=== PATIENT | male | born 1960 | race Caucasian/White ===

== ENCOUNTER 2021-12-02 06:09 | Day surgery (SDC) | payer OTHER, SELFPAY ==
[2021-11-27 12:03] VITALS: BMI 38.9
[2021-12-02 06:40] VITALS: BMI 82.2
[2021-12-02 06:43] VITALS: BP 189/104; PULSE 83; RESP 18; TEMP 36.3; O2SAT 94
[2021-12-02] MEDS: Ampicillin Sodium 2 GM in 0.9 % Sodium Chloride 100 ML IV (07:05)
--- NOTE | 2021-12-02 07:06 | P.CONAN_ITS ---
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 [facility] Active Problems Active Problems: HTN Hypothyroidism Denies ANDREW Past Medical History Medical History History of kidney stones History of revision of total replacement of left knee joint HTN (hypertension) Hypothyroid Family History Family history of problems with anesthesia: No Surgical History Surgical History History of total knee replacement Hx of cholecystectomy Hx of colonoscopy History of Problems with Anesthesia: No Social History Social History Patient Tobacco Use Status: Current everyday Tobacco user Tobacco use type: Cigar Use of substances other than those prescribed or required for medical reasons: No Are you DNR?: No Advance Directives: No Advance Directives Information Provided: Yes Meds Allergies Allergy/AdvReac Type Severity Reaction Status Date / Time No Known Allergies Allergy Unverified 11/27/21 12:02 [No Known Allergies*] Active Medications: Current Medications Sodium Biphosphate/Sodium Phosphate (Sodium Phosphate,[place]-Dibasic 133 Ml Enema) 133 ml NE ONCE PRN PRN Reason: Poor Colonoscopy Prep Results Home Medications Medication Instructions Recorded Confirmed Last Taken Type levothyroxine 25 mcg tablet 25 mcg PO DAILY 11/27/21 11/27/21 Unknown History lisinopril 20 mg tablet 20 mg PO DAILY 11/27/21 11/27/21 Unknown History Exam Exam Date and Time: December 02, [id number] Height,Weight and Vital Signs: Height 6 ft Weight 124.7kg Last Vital Signs Temp 97.3 F 12/02/21 06:43 Pulse 83 12/02/21 06:43 Resp 18 12/02/21 06:43 BP 189/104 H 12/02/21 06:43 Pulse Ox 94 12/02/21 06:43 O2 Del Method 12/02/21 06:43 Airway Mallampati Class: III TM Dist: >3cm Neck ROM: Full Loose/Missing/Broken Teeth: Yes ( Missing 1 back left) Heart: RRR Lungs: CTAB Assessment and Plan Final Anesthetic Review Family History of Problems with Anesthesia: No History of Problems with Anesthesia: No NPO: Yes ASA Class: III Final Preanesthetic Review: No Changes in Pt Med Stat, Meds/Allgs Chart Reviewed, Consent Obtained/Reviewed and Anes Risks/Benef Reviewed Patient Risk: Intermediate Procedure Risk: Low Assessment/Block/Sedation in SS: Assess/Block/Sedation-SS Anesthetic Plan Anesthetic Plan: MAC: Disposition: Standard PACU
[2021-12-02 07:09] VITALS: BMI 37.3
[2021-12-02] MEDS: Lactated Ringers 1,000 ML 100 ML IVCONT (07:25)
[2021-12-02] MEDS: Gentamicin Sulfate/NaCl 80 MG/100 ML PIGGYBACK 100 MG IV (07:40)
[2021-12-02 08:31] VITALS: BP 95/64; PULSE 82; RESP 24; TEMP 36.3; O2SAT 95
--- NOTE | 2021-12-02 08:31 | P.BOP_ITS ---
Brief Operative Note Date of Service: 12/02/21 Pre-op diagnosis: Screening Post-op diagnosis: other (Colon polyps) Procedure: Colonoscopy to the cecum with cold snare polypectomy at 40cm, and bx/removal of polyps x 3 Surgeon: Beau De Santiago Anesthesia: MAC Was an Senior [employer] Design Engineer used for this Procedure?: No Estimated blood loss (mL): 2.0 Pathology: other (A. Ascending colon polyp B. Polyp at 40cm C. Polyp at 20cm D. Rectal polyp) Condition: stable Disposition: PACU
[2021-12-02 08:45] VITALS: BP 121/87; PULSE 78; RESP 20; O2SAT 95
--- NOTE | 2021-12-02 08:45 | OP_ITS ---
12/02/2021 SURGEON: Beau De Santiago MD INDICATIONS: The patient presents for evaluation of colorectal cancer screening. Full consent was obtained from him for this, including risks of bleeding and perforation. PREOPERATIVE DIAGNOSIS: Colorectal cancer screening. POSTOPERATIVE DIAGNOSIS: Colorectal cancer screening, colon polyps, diverticulosis, and internal hemorrhoids. PROCEDURE PERFORMED: Colonoscopy to the cecum with biopsy and removal of polyps, and cold snare polypectomy x1. ESTIMATED BLOOD LOSS: COMPLICATIONS: ANESTHESIA: Monitored anesthesia care. ASSISTANTS: SPECIMENS: DESCRIPTION OF PROCEDURE: The patient was placed in the left lateral decubitus position. The digital rectal exam revealed no abnormalities. The [employer] video pediatric colonoscope was entered into the rectum and advanced easily to the cecum. Once in the cecum, I did identify normal-appearing cecal pouch with appendiceal orifice and a normal-appearing ileocecal valve. The entire cecum was well visualized and appeared normal. The scope was slowly withdrawn assessing all mucosal surfaces carefully. Preparation was excellent. In the proximal ascending colon was a flat approximately 4 mm polyp, which was biopsied and completely removed with cold biopsy forceps. At 40 cm was an approximately 5 or 6 mm polyp, which was removed by cold snare polypectomy and recovered by suction. The polypectomy site appeared clean without any sign of residual polyp, nor any significant bleeding. At 20 cm and in the distal rectum were flat, approximately 3 mm polyps, which were each biopsied and completely removed with the cold biopsy forceps. I did not visualize any other polyps, colitis, nor angiodysplasia. There was a mild amount of sigmoid diverticulosis. In the rectum, the scope was retroflexed visualizing internal hemorrhoids, but no other pathology. The rectal mucosa appeared normal. The scope was straightened and withdrawn from the patient. He tolerated the procedure well and was returned to the recovery area in stable condition. IMPRESSION: 1. Colon polyps. 2. Diverticulosis. 3. Internal hemorrhoids. PLAN: The results of the pathology will be checked. If these are tubular adenoma, then I would recommend a followup colonoscopy in 5 years. If they are all hyperplastic, I would recommend a followup colonoscopy in 10 years. He was advised not to use any aspirin and NSAIDs for 1 week. MD AZIZA Smyth/JIMMY / [id number] [facility]ALSandro
[2021-12-02 08:58] VITALS: BP 139/92; PULSE 68; RESP 16; TEMP 36.3; O2SAT 95
== END 2021-12-02 09:40 | disposition home or self-care (01) ==
PROVIDERS: PCP Internal Medicine; Visit Provider Internal Medicine
PROC: 0DJD8ZZ Inspection of Lower Intestinal Tract, Via Natural or Artificial Opening Endoscopic (ICD-10-PCS; CPT 45378; principal; 2021-12-02 07:30)
DX: Z12.11 Encounter for screening for malignant neoplasm of colon (principal); D12.2 Benign neoplasm of ascending colon; D12.6 Benign neoplasm of colon, unspecified; K63.5 Polyp of colon; K62.1 Rectal polyp; K57.30 Diverticulosis of large intestine without perforation or abscess without bleeding; K64.8 Other hemorrhoids; I10 Essential (primary) hypertension; Z79.899 Other long term (current) drug therapy
CPT/HCPCS: 45385; 45380; 88305; J0290; J1580; J2250